=== PATIENT | female | born 1980 | race Caucasian/White ===

== ENCOUNTER 2019-01-04 18:09 | Inpatient (IN) | payer OTHER ==
[~2019-01-04] VITALS: Ht 165.1 cm; Wt 70.8 kg
--- NOTE | ~2019-01-04 | EEG ---
[address] [address] EEG STUDY REPORT Name: CHAO VIRAMONTES Room: [address] IN .R.#: [id number] Admission: 01/04/19 Attend Phys: Zoë Ramey Discharge: 01/04/19 Date of : 78 Report #: [id number] THIS REPORT FOR: //name// CC: ARTUR physician/PCP Zoë Bishop This patient is being evaluated for an episode of syncope. EEG was done by placing the electrode by standard 10-20 system of electrode placement. Both referential and sequential montages were used for recording. Background activity in this patient's EEG is about 9 Hz and 30 microvolts. The patient went to sleep and that was associated with bilateral slowing and vertex sharp waves. Photic stimulation was unremarkable. Throughout the record, no active epileptiform activity was noticed. IMPRESSION: This patient's EEG is within normal limits. Thank you very much for this referral. By: [id number] Chan MD /jennifer
[~2019-01-04 18:09] MED LIST: CELEXA 10 MG TA10 M1; DESYREL50 MG; LIDOCAINE VISC100 M1 MM; NORCO 5-325 TA1 EACH PO; PHENERGAN 25 MG25 M1 PO; SYNTHROID150 MCG; SYNTHROID175 MCG; XANAX XR1 MG; ZPAK PO
[2019-01-04 18:13] VITALS: BP 132/65
[2019-01-04 19:13] LABS: ABSOLUTE BASOPHILS 0.1 thou/uL (0.0-0.2); ABSOLUTE EOSINOPHILS 0.1 thou/uL (0.0-0.7); ABSOLUTE MONOCYTES 0.6 thou/uL (0.0-1.2); ABSOLUTE NEUTROPHILS 4.5 thou/uL (1.6-8.1); BASOPHILS 0.9 %; EOSINOPHILS 1.3 %; HEMATOCRIT 40.6 % (37.0-47.0); HEMOGLOBIN 13.9 gm/dL (12.0-15.0); MCH 30.3 pg (26.0-34.0); MCHC 34.2 g/dL (28.0-37.0); MCV 88.6 fL (80.0-100.0); MONOCYTES 8.3 %; MPV 7.7 fl. (7.2-11.1); NUCLEATED RBCS 0 /100WBC; PLATELET COUNT* 304 thou/uL (150-400); POLYS 62.5 %; RBC 4.59 mil/uL (4.20-5.00); RDW-CV 12.7 % (10.5-14.5); WBC 7.2 thou/uL (4.0-11.0)
[2019-01-04 19:26] LABS: CALCIUM 8.8 mg/dL (8.5-10.1)
[2019-01-04 19:27] LABS: POTASSIUM 2.6 mmol/L (3.5-5.1)
[2019-01-04 19:30] LABS: ALBUMIN 4.1 g/dL (3.4-5.0); TOTAL BILIRUBIN 0.8 mg/dL (<0.1-1.0); TOTAL PROTEIN 7.2 g/dL (6.4-8.2)
[2019-01-04 22:17] VITALS: BP 127/76
--- NOTE | 2019-01-05 10:05 | EKG ---
[place] [address] ELECTROCARDIOGRAM REPORT Name: CHAO VIRAMONTES Room: [place] [address] DIS IN M.R.#: [id number] Admission: 01/04/19 Attend Phys: Zoë Ramey Discharge: 01/04/19 Date of : 78 Report #: [id number] THIS REPORT FOR: //name// [facility] ED Test Date: 2019-01-04 Test Time: 19:22:14 Pat Name: CHAO VIRAMONTES Department: Room: [facility] Gender: F Engineering Technician: KANCHAN : 1980 Requested By: Kathy Howard Order Number: [id number] MD: Remy Khan Measurements Intervals Hasty Rate: 69 P: 73 WY: 159 QRS: 61 QRSD: 88 T: 26 QT: 379 QTc: 406 Interpretive Statements Sinus rhythm Low voltage, precordial leads Probable anteroseptal infarct, old Baseline wander in lead(s) V1 No previous ECG available for comparison Electronically Signed On 01-05-2019 10:05:27 CDT by Remy Khan [email or web address] <ELECTRONICALLY SIGNED> By: Remy Khan MD, FAC 01/05/19 1005 21 21 Remy Khan MD, [facility] /EPI
== END 2019-01-04 22:01 | disposition left against medical advice (07) | DRG 101 ==
LOC: M.ERS 18:09 → M.TBA-ER 19:32
PROVIDERS: Personal Emergency Response Attendant; ADMIT Family Medicine
DX: R56.9 Unspecified convulsions (principal); Z53.21 Procedure and treatment not carried out due to patient leaving prior to being seen by health care provider; Z85.850 Personal history of malignant neoplasm of thyroid

== ENCOUNTER 2019-05-20 11:21 | Emergency (ER) | payer OTHER ==
[~2019-05-20] VITALS: Ht 165.1 cm; Wt 68.0 kg
[2019-05-20 12:17] LABS: INFLUENZA A ANTIGEN Negative (Negative); INFLUENZA B ANTIGEN Negative (Negative)
[2019-05-20 12:37] VITALS: BP 119/53
== END 2019-05-20 12:37 | disposition home or self-care (01) ==
LOC: M.ERS 11:21
PROVIDERS: Physician Assistant
DX: J06.9 Acute upper respiratory infection, unspecified (principal); J00 Acute nasopharyngitis [common cold]; Z88.0 Allergy status to penicillin; Z85.850 Personal history of malignant neoplasm of thyroid

== ENCOUNTER 2019-11-20 13:22 | Emergency (ER) | payer OTHER ==
[~2019-11-20] VITALS: Ht 165.1 cm; Wt 70.3 kg
[2019-11-20] MEDS ORDERED: FLUOXETINE HCL40 MG PO (13:33)
[2019-11-20] MEDS ORDERED: TROKENDI XR200 MG PO (13:33)
[2019-11-20 14:07] LABS: HEMATOCRIT 38.2 % (37.0-47.0); MCH 30.3 pg (26.0-34.0); MCV 89.2 fL (80.0-100.0); MPV 7.8 fl. (7.2-11.1); NUCLEATED RBCS 0 /100WBC; PLATELET COUNT* 246 thou/uL (150-400); RBC 4.28 mil/uL (4.20-5.00); RDW-CV 12.8 % (10.5-14.5); WBC 7.9 thou/uL (4.0-11.0)
[2019-11-20 14:25] LABS: CALCIUM 8.3 mg/dL (8.5-10.1); CREATININE 0.9 mg/dL (0.6-1.3); POTASSIUM 3.8 mmol/L (3.5-5.1)
[2019-11-20 14:30] LABS: ALBUMIN 3.2 g/dL (3.4-5.0); TOTAL BILIRUBIN 0.3 mg/dL (<0.1-1.0); TOTAL PROTEIN 6.4 g/dL (6.4-8.2)
[2019-11-20 14:37] LABS: ABSOLUTE LYMPHOCYTES 1.9 thou/uL (0.8-5.3); ABSOLUTE MONOCYTES 0.9 thou/uL (0.0-1.2); ABSOLUTE NEUTROPHILS 4.1 thou/uL (1.6-8.1); PLATELET ESTIMATE ADEQUATE
[2019-11-20 14:45] LABS: URINE BILIRUBIN NEGATIVE (Negative); URINE BLOOD NEGATIVE (Negative); URINE CLARITY SL CLOUDY; URINE COLOR YELLOW; URINE GLUCOSE-RANDOM NEGATIVE (Negative); URINE KETONES NEGATIVE (Negative); URINE LEUKOCYTES-REFLEX NEGATIVE (Negative); URINE NITRITE-REFLEX NEGATIVE (Negative); URINE PROTEIN NEGATIVE (Negative); URINE UROBILINOGEN 0.2 E.U./dl (0.2-1.0)
[2019-11-20 15:01] LABS: BACTERIA-REFLEX 1-9 Few /HPF (None Seen); MUCUS None Seen strn/LPF (None Seen); SQUAMOUS >10 Many /LPF (0-3)
[2019-11-20 15:02] LABS: AMORPHOUS PHOSPHATES Moderate /LPF (None Seen); CASTS None Seen /LPF (None Seen); URINE WBC-REFLEX 0-5 Rare /HPF (0-5)
[2019-11-20 15:03] LABS: URINE RBC 0-2 Rare /HPF (0-2)
[2019-11-20] MEDS ORDERED: HYDROCODON-ACE1 EAC7 PO (17:42)
[2019-11-20] MEDS ORDERED: DIAZEPAM 5 MG5 M1 PO (17:52)
[2019-11-20 18:07] VITALS: BP 125/70
== END 2019-11-20 18:07 | disposition home or self-care (01) ==
LOC: M.ERS 13:22
PROVIDERS: Personal Emergency Response Attendant
DX: D25.9 Leiomyoma of uterus, unspecified (principal); N93.8 Other specified abnormal uterine and vaginal bleeding; Z85.850 Personal history of malignant neoplasm of thyroid; Z88.0 Allergy status to penicillin